=== PATIENT | female | born 1985 | race Caucasian/White ===

== ENCOUNTER 2021-05-15 14:16 | Emergency (ER) | payer OTHER ==
[2021-05-15 14:37] VITALS: BP 126/83; PULSE 83; TEMP 98; BMI 27.4
== END 2021-05-15 15:12 | disposition home or self-care (01) ==
LOC: JERFT 14:16
DX: S62.634A Displaced fracture of distal phalanx of right ring finger, initial encounter for closed fracture (principal); S63.295A Dislocation of distal interphalangeal joint of left ring finger, initial encounter; W10.8XXA Fall (on) (from) other stairs and steps, initial encounter
CPT/HCPCS: 73140-TC-LT-FY; 99283-25